=== PATIENT | female | born 1945 | race Caucasian/White ===

== ENCOUNTER 2017-04-17 09:42 | Emergency (ER) | payer MEDICARE, OTHER ==
[~2017-04-17] VITALS: Ht 167.6 cm; Wt 52.2 kg
[2017-04-17 09:50] VITALS: BP 113/66
[2017-04-17] MEDS ORDERED: diphenhydrAMINE HCL 25 MG CAPSULE PO ONE (10:30)
== END 2017-04-17 10:27 | disposition home or self-care (01) ==
LOC: ER 09:51
DX: T63.441A Toxic effect of venom of bees, accidental (unintentional), initial encounter (principal); F02.80 Dementia in other diseases classified elsewhere, unspecified severity, without behavioral disturbance, psychotic disturbance, mood disturbance, and anxiety; G30.9 Alzheimer's disease, unspecified; I10 Essential (primary) hypertension; Y92.89 Other specified places as the place of occurrence of the external cause
CPT/HCPCS: 99282; A4606; Z7610

== ENCOUNTER 2022-08-29 09:07 | Emergency (ER) | payer BC, MEDICARE, OTHER ==
[~2022-08-29] VITALS: Ht 165.1 cm; Wt 63.5 kg
--- NOTE | 2022-08-29 09:07 | NUR ---
RECEIVED PT TRANSFER FROM [facility] FOR ALOC UNRESPOSIVE TO PAINFULE STIMLY PT RESIVE NARCAN 4 MG [facility]
--- NOTE | 2022-08-29 09:18 | NUR ---
ACCUCK DONE 86MG/LD
--- NOTE | 2022-08-29 09:20 | NUR ---
INSERTED ANGOCATHTER G 20 ON RT F ARM BLOOD DROW AND SENT to lab
--- NOTE | 2022-08-29 09:45 | NUR ---
TO CT SCAN OF HEAD VIA ONEL CHEN WAKING UP NOW
--- NOTE | 2022-08-29 09:46 | NUR ---
PT TAKEN TO CT VIA PORFIRIO
[2022-08-29 10:02] LABS: BASOPHILS # (AUTO) 0.1 K/uL (0.0-0.2); BASOPHILS % (AUTO) 1.3 % (0.0-2.0); EOSINOPHILS % (AUTO) 5.2 % (0.0-6.0); HEMATOCRIT 46 % (33-45); HEMOGLOBIN 14.9 g/dL (11.5-14.8); LYMPHOCYTES # (AUTO) 1.6 K/uL (0.8-4.8); LYMPHOCYTES % (AUTO) 35.2 % (20.0-44.0); MEAN CORPUSCULAR HGB CONC 33 g/dl (31.0-36.0); MEAN CORPUSCULAR VOLUME 96 fL (82-100); MONOCYTES # (AUTO) 0.5 K/uL (0.1-1.30); MONOCYTES % (AUTO) 11.6 % (2.0-12.0); NEUTROPHILS # (AUTO) 2.2 K/uL (1.8-8.9); NEUTROPHILS % (AUTO) 46.7 % (43.0-81.0); PLATELET COUNT (AUTO) 197 K/uL (150-450); WHITE BLOOD COUNT (AUTO) 4.6 K/uL (4.3-11.0)
--- NOTE | 2022-08-29 10:15 | NUR ---
UA SENT TO LAB
[2022-08-29 10:52] LABS: ABG BASE EXCESS -1.1 mmol/L; ABG PH 7.405 (7.350-7.450); ABG PO2 115.3 mmHg (75.0-100.0); COHb 0.3 % (0.5-1.5); MetHb 0.3 % (0.0-1.5); O2Hb 97.3 % (94.0-97.0); SITE, ABG Left Radial; VENT MODE, BG ROOM AIR
[2022-08-29 11:03] LABS: BILIRUBIN,URINE NEGATIVE (NEGATIVE); COLOR,URINE YELLOW (YELLOW); LEUKOCYTE ESTERASE ,URINE NEGATIVE (NEGATIVE); NITRITE, URINE POSITIVE (NEGATIVE); PH,URINE 6.5 (5.0-8.0); PROTEIN,URINE NEGATIVE (NEGATIVE); UGLUCOSE NEGATIVE (NEGATIVE); UROBILINOGEN,URINE 0.2 EU/dL (0.2)
--- NOTE | 2022-08-29 11:04 | NUR ---
COVID SWAB SENT TO LAB
[2022-08-29 12:06] LABS: BACTERIA,URINE Many /HPF (None Seen); RBC,URINE 0-2 /HPF (0-2); SQUAMOUS EPITHELIAL CELL,UR Few /HPF (None Seen)
[2022-08-29] MEDS ORDERED: CIPR500T5 PO (12:39)
--- NOTE | 2022-08-29 12:40 | NUR ---
IV removed. Catheter intact and site benign. Pressure and 4x4 applied to site. No bleeding noted.
--- NOTE | 2022-08-29 12:45 | NUR ---
Patient discharged to home in stable condition. Written and verbal after care instructions given. Patient verbalizes understanding of instruction.
[2022-08-29 13:09] VITALS: BP 127/58
== END 2022-08-29 13:09 | disposition home or self-care (01) ==
LOC: ER 09:09
DX: F06.1 Catatonic disorder due to known physiological condition (principal); N39.0 Urinary tract infection, site not specified; Z20.822 Contact with and (suspected) exposure to COVID-19; Z88.2 Allergy status to sulfonamides; G30.9 Alzheimer's disease, unspecified; F02.80 Dementia in other diseases classified elsewhere, unspecified severity, without behavioral disturbance, psychotic disturbance, mood disturbance, and anxiety; I10 Essential (primary) hypertension
CPT/HCPCS: 99285; 72125; 71045; 87426; 93005; 70450; 85025; 87086; 81001; 36415; 84439; 36600; C9803

== ENCOUNTER 2023-01-30 21:02 | Inpatient (IN) | payer BC ==
[~2023-01-30] VITALS: Ht 162.6 cm; Wt 56.7 kg
[~2023-01-30 21:02] MED LIST: CIPR500T5 PO
[2023-01-30 22:11] LABS: BASOPHILS % (AUTO) 0.4 % (0.0-2.0); EOSINOPHILS % (AUTO) 0.2 % (0.0-6.0); HEMATOCRIT 43 % (33-45); HEMOGLOBIN 14.2 g/dL (11.5-14.8); LYMPHOCYTES # (AUTO) 0.9 K/uL (0.8-4.8); LYMPHOCYTES % (AUTO) 10.4 % (20.0-44.0); MEAN CORPUSCULAR HGB CONC 33 g/dl (31.0-36.0); MEAN CORPUSCULAR VOLUME 94 fL (82-100); MONOCYTES # (AUTO) 0.7 K/uL (0.1-1.30); MONOCYTES % (AUTO) 7.5 % (2.0-12.0); NEUTROPHILS # (AUTO) 7.2 K/uL (1.8-8.9); NEUTROPHILS % (AUTO) 81.5 % (43.0-81.0); PLATELET COUNT (AUTO) 206 K/uL (150-450); WHITE BLOOD COUNT (AUTO) 8.9 K/uL (4.3-11.0)
[2023-01-30 22:23] LABS: CALCIUM, SERUM 9.8 mg/dL (8.5-10.1); CARBON DIOXIDE 26 mmol/L (21-32); CHLORIDE 105 mmol/L (98-107); GLUCOSE 111 mg/dL (74-106); POTASSIUM 3.9 mmol/L (3.5-5.1); SODIUM SERUM 140 mmol/L (136-145); UREA NITROGEN, BLOOD 17 mg/dL (7-18)
[2023-01-30 22:37] LABS: ALANINE AMINOTRANSFERASE 22 U/L (12-78); ALBUMIN 3.9 g/dL (3.4-5.0); ALKALINE PHOSPHATASE 129 U/L (46-116); ASPARTATE AMINOTRANSFERASE 20 U/L (15-37); BILIRUBIN,DIRECT 0.1 mg/dL (0.0-0.2); BILIRUBIN,TOTAL 0.5 mg/dL (0.2-1.0); TOTAL PROTEIN, SERUM 7.4 g/dL (6.4-8.2)
[2023-01-31] MEDS ORDERED: OLANZAPINE 10 MG VIAL IM ONE ×2 (00:12→00:30)
[2023-01-31 01:25] LABS: BILIRUBIN,URINE NEGATIVE (NEGATIVE); COLOR,URINE YELLOW (YELLOW); LEUKOCYTE ESTERASE ,URINE NEGATIVE (NEGATIVE); NITRITE, URINE NEGATIVE (NEGATIVE); PH,URINE 7.5 (5.0-8.0); PROTEIN,URINE TRACE mg/dl (NEGATIVE); UGLUCOSE NEGATIVE (NEGATIVE)
[2023-01-31 01:26] LABS: BACTERIA,URINE Rare /HPF (None Seen); RBC,URINE 0-2 /HPF (0-2); SQUAMOUS EPITHELIAL CELL,UR Few /HPF (None Seen); WBC,URINE 0-2 /HPF (0-3)
[2023-01-31] MEDS ORDERED: MAG HYDROX/AL HYDROX/SIMETH 30 ML UDC PO PRN (05:00)
[2023-01-31] MEDS ORDERED: ZOLPIDEM TARTRATE 5 MG TABLET PO PRN (05:00)
[2023-01-31] MEDS ORDERED: ENOXAPARIN SODIUM 40 MG/0.4 ML DISP.SYRIN SQ SCH (05:00)
[2023-01-31] MEDS ORDERED: Z GUARD REMEDY 4 OZ OINT TP PRN (05:00)
[2023-01-31] MEDS ORDERED: ONDANSETRON HCL/PF 4 MG/2 ML VIAL IVP PRN (05:00)
[2023-01-31] MEDS ORDERED: MAGNESIUM HYDROXIDE 30 ML UDC PO PRN (05:00)
[2023-01-31] MEDS ORDERED: ACETAMINOPHEN 325 MG TABLET PO PRN (05:00)
[2023-01-31 06:00] LABS: BASOPHILS % (AUTO) 0.4 % (0.0-2.0); EOSINOPHILS % (AUTO) 0.2 % (0.0-6.0); HEMATOCRIT 43 % (33-45); HEMOGLOBIN 14.3 g/dL (11.5-14.8); LYMPHOCYTES # (AUTO) 1.3 K/uL (0.8-4.8); LYMPHOCYTES % (AUTO) 18.9 % (20.0-44.0); MEAN CORPUSCULAR HGB CONC 33 g/dl (31.0-36.0); MEAN CORPUSCULAR VOLUME 93 fL (82-100); MONOCYTES # (AUTO) 0.7 K/uL (0.1-1.30); MONOCYTES % (AUTO) 9.9 % (2.0-12.0); NEUTROPHILS % (AUTO) 70.6 % (43.0-81.0); PLATELET COUNT (AUTO) 183 K/uL (150-450); RED BLOOD CELL COUNT(AUTO) 4.65 MIL/uL (4.0-5.2); WHITE BLOOD COUNT (AUTO) 7.1 K/uL (4.3-11.0)
[2023-01-31 06:13] LABS: CALCIUM, SERUM 9.2 mg/dL (8.5-10.1); CARBON DIOXIDE 25 mmol/L (21-32); CHLORIDE 104 mmol/L (98-107); CREATININE 0.8 mg/dL (0.6-1.3); GLUCOSE 94 mg/dL (74-106); POTASSIUM 3.6 mmol/L (3.5-5.1); SODIUM SERUM 139 mmol/L (136-145); UREA NITROGEN, BLOOD 11 mg/dL (7-18)
[2023-01-31 06:21] LABS: CHOLESTEROL 121 mg/dL (<200); HDL CHOLESTEROL 72 mg/dL (40-60); LDL 48 mg/dL (0-99); TRIGLYCERIDES 46 mg/dL (30-150)
[2023-01-31 06:22] LABS: C-REACTIVE PROTEIN 4.5 mg/dL (0.0-0.9)
[2023-01-31 06:40] VITALS: BP 119/52
[2023-01-31] MEDS ORDERED: PANTOPRAZOLE 40 MG VIAL IV SCH (09:00)
[2023-01-31] MEDS ORDERED: AMLO2.5T4 PO (11:33)
[2023-01-31] MEDS ORDERED: GALA8TAB8 PO (11:33)
[2023-01-31] MEDS ORDERED: MEMA28CA5 PO (11:33)
[2023-01-31] MEDS ORDERED: LOSA25TA27 PO (11:33)
[2023-01-31] MEDS ORDERED: OLAN2.5T3 PO (11:33)
[2023-01-31] MEDS ORDERED: ROSU5TAB13 PO (11:33)
[2023-01-31] MEDS ORDERED: BUPR-54 PO (11:33)
[2023-01-31] MEDS ORDERED: ALPR0.5T8 PO (11:33)
== END 2023-01-31 16:50 | DRG 179 ==
LOC: ER 21:15 → MEDSG1 01-31 06:46
PROVIDERS: ADMIT Nurse Practitioner Acute Care; ATTEND Internal Medicine
DX: U07.1 COVID-19 (principal); G30.9 Alzheimer's disease, unspecified; F02.80 Dementia in other diseases classified elsewhere, unspecified severity, without behavioral disturbance, psychotic disturbance, mood disturbance, and anxiety; I10 Essential (primary) hypertension; Z78.9 Other specified health status; R29.6 Repeated falls; Z88.2 Allergy status to sulfonamides; F09 Unspecified mental disorder due to known physiological condition
CPT/HCPCS: 36415; 71045-TC; 80048-TC; 80061-TC; 80076-TC; 81001; 82962-TC; 83880; 84484-TC; 85025-TC; 85378-TC; 85652-TC; 86140-TC; 87081-TC; 97112-TC; 97116-TC; 97530-TC; C9113; C9803; G0378; J1650; J3490

== ENCOUNTER 2023-08-27 08:45 | Inpatient (IN) | payer BC, OTHER ==
[~2023-08-27] VITALS: Ht 167.6 cm; Wt 53.5 kg
[~2023-08-27 08:45] MED LIST changes: +ALPR0.5T8 PO; +AMLO2.5T4 PO; +BUPR-54 PO; -CIPR500T5 PO; +GALA8TAB8 PO; +LOSA25TA27 PO; +MEMA28CA5 PO; +OLAN2.5T3 PO; +ROSU5TAB13 PO
[2023-08-27 10:47] LABS: CALCIUM, SERUM 9.1 mg/dL (8.5-10.1); CREATININE 0.7 mg/dL (0.6-1.3); POTASSIUM 3.8 mmol/L (3.5-5.1)
[2023-08-27 10:53] LABS: BILIRUBIN,DIRECT 0.2 mg/dL (0.0-0.2); BILIRUBIN,TOTAL 0.9 mg/dL (0.2-1.0); TOTAL PROTEIN, SERUM 6.5 g/dL (6.4-8.2)
[2023-08-27 11:00] LABS: INR 1.07 (0.91-1.10); PROTHROMBIN TIME 11.3 SECS (9.2-11.1)
[2023-08-27 11:01] LABS: BASOPHILS % (AUTO) 0.2 % (0.0-2.0); EOSINOPHILS % (AUTO) 0.6 % (0.0-6.0); HEMATOCRIT 44 % (33-45); HEMOGLOBIN 14.9 g/dL (11.5-14.8); LYMPHOCYTES # (AUTO) 1.1 K/uL (0.8-4.8); MEAN CORPUSCULAR HEMOGLOBIN 31 PG (26.0-33.0); MEAN CORPUSCULAR HGB CONC 34 g/dl (31.0-36.0); MEAN CORPUSCULAR VOLUME 91 fL (82-100); MONOCYTES # (AUTO) 0.6 K/uL (0.1-1.30); MONOCYTES % (AUTO) 8.6 % (2.0-12.0); NEUTROPHILS % (AUTO) 74.6 % (43.0-81.0); PLATELET COUNT (AUTO) 148 K/uL (150-450); RED BLOOD CELL COUNT(AUTO) 4.77 MIL/uL (4.0-5.2); WHITE BLOOD COUNT (AUTO) 6.7 K/uL (4.3-11.0)
[2023-08-27] MEDS ORDERED: CHOL100043 PO (11:22)
[2023-08-27] MEDS ORDERED: CYAN-51 PO (11:22)
[2023-08-27] MEDS ORDERED: LORA-258 PO ×2 (11:22)
[2023-08-27] MEDS ORDERED: POLY17PO4 PO (11:22)
[2023-08-27] MEDS ORDERED: DICL100G26 TP (11:22)
[2023-08-27] MEDS ORDERED: [UNRECOGNIZED DRUG - OTHER] PO (11:22)
[2023-08-27] MEDS ORDERED: NITR100C11 PO (11:22)
[2023-08-27] MEDS ORDERED: ACET-868 PO (11:22)
[2023-08-27 11:39] LABS: APPEARANCE,URINE CLEAR (CLEAR); BILIRUBIN,URINE 1+ (NEGATIVE); BLOOD, URINE NEGATIVE Ery/uL (NEGATIVE); COLOR,URINE DARK YELLOW (YELLOW); KETONES,URINE 3+ mg/dL (NEGATIVE); LEUKOCYTE ESTERASE ,URINE NEGATIVE (NEGATIVE); NITRITE, URINE NEGATIVE (NEGATIVE); PROTEIN,URINE TRACE mg/dl (NEGATIVE); UGLUCOSE NEGATIVE (NEGATIVE)
[2023-08-27 11:57] LABS: ADD URINE CULTURE NO; BACTERIA,URINE Rare /HPF (None Seen); RBC,URINE 0-2 /HPF (0-2); SQUAMOUS EPITHELIAL CELL,UR Few /HPF (None Seen); WBC,URINE 0-2 /HPF (0-3)
[2023-08-27] MEDS ORDERED: MAG HYDROX/AL HYDROX/SIMETH 30 ML UDC PO PRN (15:30)
[2023-08-27] MEDS ORDERED: ZOLPIDEM TARTRATE 5 MG TABLET PO PRN (15:30)
[2023-08-27] MEDS ORDERED: POLYETHYLENE GLYCOL 3350 17 GM POWD.PACK PO PRN (15:30)
[2023-08-27] MEDS ORDERED: MORPHINE SULFATE INJ 2 MG/ML DISP.SYRIN IV PRN (15:30)
[2023-08-27] MEDS ORDERED: MAGNESIUM HYDROXIDE 30 ML UDC PO PRN (15:30)
[2023-08-27] MEDS ORDERED: ONDANSETRON HCL/PF 4 MG/2 ML VIAL IVP PRN (15:30)
[2023-08-27] MEDS ORDERED: Z GUARD REMEDY 4 OZ OINT TP PRN (15:30)
[2023-08-27] MEDS ORDERED: HYDROCODONE/APAP 5/325MG TABLET PO PRN (15:30)
[2023-08-27] MEDS: IV D5/0.45 NACL 1,000 ML IV PRN (15:38)
[2023-08-27] MEDS ORDERED: PANTOPRAZOLE 40 MG VIAL ONE (15:40)
[2023-08-27] MEDS: PANTOPRAZOLE 40 MG VIAL IV SCH (15:41)
[2023-08-27] MEDS ORDERED: MORPHINE SULFATE INJ 4 MG/ML DISP.SYRIN ONE (16:27)
[2023-08-27] MEDS ORDERED: MEMANTINE HCL 5 MG TABLET ONE (18:02)
[2023-08-27] MEDS: MEMANTINE HCL 5 MG TABLET PO SCH (18:02)
[2023-08-27] MEDS ORDERED: HYDROCODONE/APAP 5/325MG TABLET ONE (19:12)
[2023-08-27 19:35] VITALS: BP 115/89; TEMP 99; O2SAT 95
[2023-08-27] MEDS: ENOXAPARIN SODIUM 40 MG/0.4 ML DISP.SYRIN SQ SCH (21:27)
[2023-08-28] MEDS: IV D5/0.45 NACL 1,000 ML IV PRN ×2 (05:38→19:24)
[2023-08-28] MEDS: MORPHINE SULFATE INJ 4 MG/ML DISP.SYRIN IV PRN ×3 (05:58→15:43)
[2023-08-28 06:18] LABS: BASOPHILS # (AUTO) 0.1 K/uL (0.0-0.2); BASOPHILS % (AUTO) 0.8 % (0.0-2.0); EOSINOPHILS # (AUTO) 0.1 K/uL (0.0-0.7); EOSINOPHILS % (AUTO) 1.3 % (0.0-6.0); HEMATOCRIT 45 % (33-45); HEMOGLOBIN 14.9 g/dL (11.5-14.8); LYMPHOCYTES # (AUTO) 1.7 K/uL (0.8-4.8); LYMPHOCYTES % (AUTO) 20.5 % (20.0-44.0); MEAN CORPUSCULAR HEMOGLOBIN 31 PG (26.0-33.0); MEAN CORPUSCULAR HGB CONC 33 g/dl (31.0-36.0); MEAN CORPUSCULAR VOLUME 94 fL (82-100); MONOCYTES # (AUTO) 0.8 K/uL (0.1-1.30); MONOCYTES % (AUTO) 9.6 % (2.0-12.0); NEUTROPHILS # (AUTO) 5.6 K/uL (1.8-8.9); NEUTROPHILS % (AUTO) 67.8 % (43.0-81.0); PLATELET COUNT (AUTO) 181 K/uL (150-450); RED BLOOD CELL COUNT(AUTO) 4.78 MIL/uL (4.0-5.2); RED CELL DISTRIBUTION WIDTH 14.3 % (11.5-15.0); WHITE BLOOD COUNT (AUTO) 8.3 K/uL (4.3-11.0)
[2023-08-28 06:39] LABS: THYROID STIMULATING HORMONE 1.455 uIU/mL (0.358-3.74)
[2023-08-28 06:57] LABS: CALCIUM, SERUM 8.9 mg/dL (8.5-10.1); CREATININE 0.8 mg/dL (0.6-1.3); PHOSPHORUS 2.7 mg/dL (2.5-4.9); POTASSIUM 3.7 mmol/L (3.5-5.1)
[2023-08-28] MEDS: PANTOPRAZOLE 40 MG VIAL IV SCH (08:18)
[2023-08-28] MEDS: ATORVASTATIN 40 MG TABLET PO SCH (08:21)
[2023-08-28] MEDS: MEMANTINE HCL 5 MG TABLET PO SCH ×2 (08:21→16:58)
[2023-08-28] MEDS: LOSARTAN POTASSIUM 25 MG TABLET PO SCH (08:21)
[2023-08-28] MEDS: GALANTAMINE HYDROBROMIDE 4 MG TABLET PO SCH (08:22)
[2023-08-28] MEDS: CHOLECALCIFEROL 1,000 UNIT TABLET (VIT D3) PO SCH (08:22)
[2023-08-28] MEDS: BUPROPION XL 150 MG TAB.ER.24 PO SCH (08:22)
[2023-08-28] MEDS: AMLODIPINE BESYLATE 5 MG TABLET PO SCH (08:22)
[2023-08-28] MEDS: ENOXAPARIN SODIUM 40 MG/0.4 ML DISP.SYRIN SQ SCH (21:58)
[2023-08-29 07:00] VITALS: BP 122/75; TEMP 99.5; O2SAT 98
[2023-08-29] MEDS: IV D5/0.45 NACL 1,000 ML IV PRN ×2 (07:17→22:12)
[2023-08-29] MEDS: PANTOPRAZOLE 40 MG VIAL IV SCH (09:37)
[2023-08-29] MEDS: MEMANTINE HCL 5 MG TABLET PO SCH ×2 (09:38→17:00)
[2023-08-29] MEDS: CHOLECALCIFEROL 1,000 UNIT TABLET (VIT D3) PO SCH (09:38)
[2023-08-29] MEDS: LOSARTAN POTASSIUM 25 MG TABLET PO SCH (09:38)
[2023-08-29] MEDS: BUPROPION XL 150 MG TAB.ER.24 PO SCH (09:38)
[2023-08-29] MEDS: AMLODIPINE BESYLATE 5 MG TABLET PO SCH (09:38)
[2023-08-29] MEDS: ATORVASTATIN 40 MG TABLET PO SCH (09:38)
[2023-08-29] MEDS: GALANTAMINE HYDROBROMIDE 4 MG TABLET PO SCH (09:47)
[2023-08-29] MEDS ORDERED: ANESTHESIA TRAY IN PYXIS 1 EA TRAY MC ONE (12:25)
[2023-08-29] MEDS ORDERED: POLYMYXIN B SULFATE 0 UNITS ONE (12:25)
[2023-08-29] MEDS ORDERED: BUPIVACAINE 0.25% 75 MG/30 ML VIAL ONE (12:26)
[2023-08-29] MEDS ORDERED: FAMOTIDINE/PF INJ 20 MG/2 ML VIAL IV ONE (17:12)
[2023-08-29] MEDS ORDERED: ALBUMIN 25% 50 ML IV ONE (17:12)
[2023-08-29] MEDS ORDERED: KETAMINE HCL (500MG/10ML) 50 MG/ML VIAL ONE (17:12)
[2023-08-29] MEDS ORDERED: FENTANYL PF 100MCG/2ML AMPUL ONE (17:12)
[2023-08-29] MEDS ORDERED: TRANEXAMIC ACID 1,000 MG/10 ML VIAL ONE (17:14)
[2023-08-29] MEDS ORDERED: ROPIVACAINE HCL 0.5% 5 MG/ML 30ML VIAL ONE (17:14)
[2023-08-29] MEDS ORDERED: HYDROMORPHONE INJ 2 MG/ML DISP.SYRIN ONE (18:41)
[2023-08-29] MEDS ORDERED: MEPERIDINE25 MG SYR 25 MG/ML VIAL ONE (19:34)
[2023-08-29] MEDS ORDERED: SENNOSIDES 8.6 MG TABLET PO PRN ×2 (20:00)
[2023-08-29] MEDS ORDERED: DOCUSATE SODIUM 100 MG CAPSULE PO PRN (20:00)
[2023-08-29] MEDS ORDERED: BISACODYL SUPP (10 MG) 10 MG/SUPP.RECT SUPP.RECT RC PRN (20:00)
[2023-08-29] MEDS ORDERED: DOCUSATE SODIUM 250 MG CAPSULE PO PRN (20:00)
[2023-08-29 20:30] VITALS: BP 151/91; TEMP 98.8; O2SAT 94
[2023-08-29] MEDS: ENOXAPARIN SODIUM 40 MG/0.4 ML DISP.SYRIN SQ SCH (22:24)
[2023-08-30] MEDS: ANCEF 1 GM/50 ML D5W IV SCH ×4 (02:17→09:04)
[2023-08-30 06:59] LABS: HEMATOCRIT 38 % (33-45); HEMOGLOBIN 12.6 g/dL (11.5-14.8); LYMPHOCYTES # (AUTO) 0.6 K/uL (0.8-4.8); LYMPHOCYTES % (AUTO) 7.3 % (20.0-44.0); MEAN CORPUSCULAR HEMOGLOBIN 31 PG (26.0-33.0); MEAN CORPUSCULAR HGB CONC 33 g/dl (31.0-36.0); MEAN CORPUSCULAR VOLUME 94 fL (82-100); MONOCYTES # (AUTO) 0.6 K/uL (0.1-1.30); MONOCYTES % (AUTO) 7.1 % (2.0-12.0); NEUTROPHILS # (AUTO) 6.9 K/uL (1.8-8.9); NEUTROPHILS % (AUTO) 85.6 % (43.0-81.0); PLATELET COUNT (AUTO) 240 K/uL (150-450); RED BLOOD CELL COUNT(AUTO) 4.04 MIL/uL (4.0-5.2); RED CELL DISTRIBUTION WIDTH 14.3 % (11.5-15.0); WHITE BLOOD COUNT (AUTO) 8.1 K/uL (4.3-11.0)
[2023-08-30 07:21] LABS: CALCIUM, SERUM 8.9 mg/dL (8.5-10.1); CREATININE 0.7 mg/dL (0.6-1.3); POTASSIUM 3.6 mmol/L (3.5-5.1)
[2023-08-30] MEDS: ATORVASTATIN 40 MG TABLET PO SCH (08:43)
[2023-08-30] MEDS: MEMANTINE HCL 5 MG TABLET PO SCH ×2 (08:43→16:07)
[2023-08-30] MEDS: PANTOPRAZOLE 40 MG TABLET.DR PO SCH (08:44)
[2023-08-30] MEDS: BUPROPION XL 150 MG TAB.ER.24 PO SCH (08:44)
[2023-08-30] MEDS: CHOLECALCIFEROL 1,000 UNIT TABLET (VIT D3) PO SCH (08:44)
[2023-08-30] MEDS: GALANTAMINE HYDROBROMIDE 4 MG TABLET PO SCH (08:45)
[2023-08-30] MEDS: LOSARTAN POTASSIUM 25 MG TABLET PO SCH (09:03)
[2023-08-30] MEDS: AMLODIPINE BESYLATE 5 MG TABLET PO SCH (09:03)
[2023-08-30 09:13] VITALS: BP 106/85; TEMP 98.4; O2SAT 95
[2023-08-30] MEDS: ENSURE ENLIVE 237 ML LIQUID (VANILLA) PO SCH (16:06)
[2023-08-30 21:00] VITALS: BP 114/76; TEMP 99.5; O2SAT 96
[2023-08-30] MEDS: ACETAMINOPHEN 325 MG TABLET PO PRN (21:20)
[2023-08-30] MEDS: ENOXAPARIN SODIUM 40 MG/0.4 ML DISP.SYRIN SQ SCH (21:21)
[2023-08-31 07:30] VITALS: BP 109/61; TEMP 98.6; O2SAT 96
[2023-08-31 08:01] LABS: BASOPHILS % (AUTO) 0.1 % (0.0-2.0); EOSINOPHILS % (AUTO) 0.5 % (0.0-6.0); HEMATOCRIT 35 % (33-45); HEMOGLOBIN 11.9 g/dL (11.5-14.8); LYMPHOCYTES % (AUTO) 12.9 % (20.0-44.0); MEAN CORPUSCULAR HEMOGLOBIN 31 PG (26.0-33.0); MEAN CORPUSCULAR HGB CONC 34 g/dl (31.0-36.0); MEAN CORPUSCULAR VOLUME 93 fL (82-100); MONOCYTES # (AUTO) 0.9 K/uL (0.1-1.30); MONOCYTES % (AUTO) 12.2 % (2.0-12.0); NEUTROPHILS # (AUTO) 5.7 K/uL (1.8-8.9); NEUTROPHILS % (AUTO) 74.3 % (43.0-81.0); PLATELET COUNT (AUTO) 271 K/uL (150-450); RED BLOOD CELL COUNT(AUTO) 3.81 MIL/uL (4.0-5.2); RED CELL DISTRIBUTION WIDTH 14.2 % (11.5-15.0); WHITE BLOOD COUNT (AUTO) 7.7 K/uL (4.3-11.0)
[2023-08-31] MEDS: ENSURE ENLIVE 237 ML LIQUID (VANILLA) PO SCH ×2 (08:03→15:59)
[2023-08-31 08:33] LABS: CALCIUM, SERUM 8.7 mg/dL (8.5-10.1); CREATININE 0.7 mg/dL (0.6-1.3); POTASSIUM 3.5 mmol/L (3.5-5.1)
[2023-08-31] MEDS: PANTOPRAZOLE 40 MG TABLET.DR PO SCH (09:12)
[2023-08-31] MEDS: LOSARTAN POTASSIUM 25 MG TABLET PO SCH (09:12)
[2023-08-31] MEDS: BUPROPION XL 150 MG TAB.ER.24 PO SCH (09:12)
[2023-08-31] MEDS: CHOLECALCIFEROL 1,000 UNIT TABLET (VIT D3) PO SCH (09:12)
[2023-08-31] MEDS: ATORVASTATIN 40 MG TABLET PO SCH (09:13)
[2023-08-31] MEDS: AMLODIPINE BESYLATE 5 MG TABLET PO SCH (09:13)
[2023-08-31] MEDS: MEMANTINE HCL 5 MG TABLET PO SCH ×2 (09:19→16:00)
[2023-08-31] MEDS: GALANTAMINE HYDROBROMIDE 4 MG TABLET PO SCH (09:19)
[2023-08-31] MEDS: CARVEDILOL 12.5 MG TABLET PO SCH ×2 (10:00→21:00)
[2023-08-31] MEDS: SPIRONOLACTONE 25 MG TABLET PO SCH (10:51)
[2023-08-31] MEDS: ACETAMINOPHEN 325 MG TABLET PO PRN (15:59)
[2023-08-31 16:00] VITALS: BP 100/71; TEMP 100.2; O2SAT 96
[2023-08-31 20:00] VITALS: BP 94/59; TEMP 98.5; O2SAT 95
[2023-08-31] MEDS ORDERED: IV NS 0.9% 500 ML IV ONE (22:00)
[2023-08-31 22:26] LABS: BASOPHILS % (AUTO) 0.1 % (0.0-2.0); EOSINOPHILS # (AUTO) 0.1 K/uL (0.0-0.7); EOSINOPHILS % (AUTO) 0.9 % (0.0-6.0); HEMATOCRIT 35 % (33-45); HEMOGLOBIN 11.4 g/dL (11.5-14.8); LYMPHOCYTES # (AUTO) 1.3 K/uL (0.8-4.8); LYMPHOCYTES % (AUTO) 15.7 % (20.0-44.0); MEAN CORPUSCULAR HEMOGLOBIN 31 PG (26.0-33.0); MEAN CORPUSCULAR HGB CONC 33 g/dl (31.0-36.0); MEAN CORPUSCULAR VOLUME 94 fL (82-100); MONOCYTES % (AUTO) 11.8 % (2.0-12.0); NEUTROPHILS # (AUTO) 5.9 K/uL (1.8-8.9); NEUTROPHILS % (AUTO) 71.5 % (43.0-81.0); PLATELET COUNT (AUTO) 256 K/uL (150-450); RED BLOOD CELL COUNT(AUTO) 3.68 MIL/uL (4.0-5.2); RED CELL DISTRIBUTION WIDTH 14.6 % (11.5-15.0); WHITE BLOOD COUNT (AUTO) 8.2 K/uL (4.3-11.0)
[2023-08-31] MEDS: ENOXAPARIN SODIUM 40 MG/0.4 ML DISP.SYRIN SQ SCH (23:53)
[2023-09-01 07:06] LABS: BASOPHILS % (AUTO) 0.2 % (0.0-2.0); EOSINOPHILS # (AUTO) 0.1 K/uL (0.0-0.7); EOSINOPHILS % (AUTO) 1.5 % (0.0-6.0); HEMATOCRIT 34 % (33-45); HEMOGLOBIN 11.3 g/dL (11.5-14.8); LYMPHOCYTES # (AUTO) 1.1 K/uL (0.8-4.8); LYMPHOCYTES % (AUTO) 15.6 % (20.0-44.0); MEAN CORPUSCULAR HEMOGLOBIN 31 PG (26.0-33.0); MEAN CORPUSCULAR HGB CONC 33 g/dl (31.0-36.0); MEAN CORPUSCULAR VOLUME 94 fL (82-100); MONOCYTES # (AUTO) 0.8 K/uL (0.1-1.30); NEUTROPHILS % (AUTO) 71.7 % (43.0-81.0); PLATELET COUNT (AUTO) 260 K/uL (150-450); RED BLOOD CELL COUNT(AUTO) 3.61 MIL/uL (4.0-5.2); RED CELL DISTRIBUTION WIDTH 14.2 % (11.5-15.0); WHITE BLOOD COUNT (AUTO) 6.9 K/uL (4.3-11.0)
[2023-09-01 07:17] LABS: CALCIUM, SERUM 8.6 mg/dL (8.5-10.1); CARBON DIOXIDE 25 mmol/L (21-32); CHLORIDE 107 mmol/L (98-107); CREATININE 0.6 mg/dL (0.6-1.3); GLUCOSE 94 mg/dL (74-106); POTASSIUM 3.5 mmol/L (3.5-5.1); SODIUM SERUM 137 mmol/L (136-145); UREA NITROGEN, BLOOD 16 mg/dL (7-18)
[2023-09-01 08:00] VITALS: BP 100/65; TEMP 98.1; O2SAT 94
[2023-09-01] MEDS: ENSURE ENLIVE 237 ML LIQUID (VANILLA) PO SCH ×2 (08:42→17:43)
[2023-09-01] MEDS: PANTOPRAZOLE 40 MG TABLET.DR PO SCH (08:58)
[2023-09-01] MEDS: BUPROPION XL 150 MG TAB.ER.24 PO SCH (08:58)
[2023-09-01] MEDS: SPIRONOLACTONE 25 MG TABLET PO SCH (08:58)
[2023-09-01] MEDS: CHOLECALCIFEROL 1,000 UNIT TABLET (VIT D3) PO SCH (08:58)
[2023-09-01] MEDS: MEMANTINE HCL 5 MG TABLET PO SCH ×2 (08:58→17:43)
[2023-09-01] MEDS: CARVEDILOL 12.5 MG TABLET PO SCH (08:59)
[2023-09-01] MEDS: LOSARTAN POTASSIUM 25 MG TABLET PO SCH (09:00)
[2023-09-01] MEDS: ATORVASTATIN 40 MG TABLET PO SCH (09:03)
[2023-09-01] MEDS: GALANTAMINE HYDROBROMIDE 4 MG TABLET PO SCH (09:04)
[2023-09-01 16:00] VITALS: BP 108/69; TEMP 98.3; O2SAT 96
[2023-09-01 20:00] VITALS: BP 106/64; TEMP 98.7; O2SAT 95
[2023-09-01] MEDS: ENOXAPARIN SODIUM 40 MG/0.4 ML DISP.SYRIN SQ SCH (21:52)
[2023-09-02 07:30] VITALS: BP 106/72; TEMP 97.8; O2SAT 96
[2023-09-02] MEDS: ENSURE ENLIVE 237 ML LIQUID (VANILLA) PO SCH ×2 (08:42→17:02)
[2023-09-02] MEDS: CHOLECALCIFEROL 1,000 UNIT TABLET (VIT D3) PO SCH (09:12)
[2023-09-02] MEDS: SPIRONOLACTONE 25 MG TABLET PO SCH (09:12)
[2023-09-02] MEDS: ATORVASTATIN 40 MG TABLET PO SCH (09:12)
[2023-09-02] MEDS: MEMANTINE HCL 5 MG TABLET PO SCH ×2 (09:12→17:17)
[2023-09-02] MEDS: BUPROPION XL 150 MG TAB.ER.24 PO SCH (09:13)
[2023-09-02] MEDS: PANTOPRAZOLE 40 MG TABLET.DR PO SCH (09:13)
[2023-09-02] MEDS: GALANTAMINE HYDROBROMIDE 4 MG TABLET PO SCH (09:34)
[2023-09-02 16:00] VITALS: BP 106/63; TEMP 98.6; O2SAT 96
[2023-09-02 20:00] VITALS: BP 106/77; TEMP 98.4; O2SAT 97
[2023-09-02] MEDS ORDERED: ENOXAPARIN SODIUM 40 MG/0.4 ML DISP.SYRIN SQ ONE (21:28)
[2023-09-02] MEDS: ENOXAPARIN SODIUM 40 MG/0.4 ML DISP.SYRIN SQ SCH (21:47)
[2023-09-03 07:30] VITALS: BP 116/71; TEMP 98.4; O2SAT 95
[2023-09-03] MEDS: ENSURE ENLIVE 237 ML LIQUID (VANILLA) PO SCH (08:09)
[2023-09-03] MEDS: SPIRONOLACTONE 25 MG TABLET PO SCH (08:44)
[2023-09-03] MEDS: PANTOPRAZOLE 40 MG TABLET.DR PO SCH (08:44)
[2023-09-03] MEDS: BUPROPION XL 150 MG TAB.ER.24 PO SCH (08:44)
[2023-09-03] MEDS: MEMANTINE HCL 5 MG TABLET PO SCH (08:44)
[2023-09-03] MEDS: ATORVASTATIN 40 MG TABLET PO SCH (08:44)
[2023-09-03] MEDS: CHOLECALCIFEROL 1,000 UNIT TABLET (VIT D3) PO SCH (08:44)
[2023-09-03] MEDS: GALANTAMINE HYDROBROMIDE 4 MG TABLET PO SCH (08:45)
== END 2023-09-03 15:16 | DRG 521 ==
LOC: ER 08:47 → MED 18:44
PROVIDERS: ADMIT Nurse Practitioner Acute Care; ATTEND Nurse Practitioner Acute Care
PROC: 0SRS0JZ Replacement of Left Hip Joint, Femoral Surface with Synthetic Substitute, Open Approach (ICD-10-PCS; principal; 2023-08-29)
DX: S72.002A Fracture of unspecified part of neck of left femur, initial encounter for closed fracture (principal); I50.23 Acute on chronic systolic (congestive) heart failure; F02.83 Dementia in other diseases classified elsewhere, unspecified severity, with mood disturbance; F02.84 Dementia in other diseases classified elsewhere, unspecified severity, with anxiety; E44.1 Mild protein-calorie malnutrition; D68.69 Other thrombophilia; W18.30XA Fall on same level, unspecified, initial encounter; G30.9 Alzheimer's disease, unspecified; F32.A Depression, unspecified; I11.0 Hypertensive heart disease with heart failure; E78.5 Hyperlipidemia, unspecified; E88.09 Other disorders of plasma-protein metabolism, not elsewhere classified; Z86.16 Personal history of COVID-19; Z88.2 Allergy status to sulfonamides; R91.1 Solitary pulmonary nodule; Z74.09 Other reduced mobility; Y93.9 Activity, unspecified; Y92.89 Other specified places as the place of occurrence of the external cause
CPT/HCPCS: 36415; 71045-TC; 71250-TC; 73502; 80048-TC; 80061-TC; 80076-TC; 81001; 82962-TC; 83690-TC; 83735-TC; 84100-TC; 84443-TC; 85025-TC; 85730-TC; 86850-TC; 87081-TC; 87086-TC; 88305-TC; 88311-TC; 93307-TC; 97110-TC; 97112-TC; 97116-TC; 97530-TC; 97535-TC; A4217; A4223; A6209; A6402; C1776; C9113; G0378; J0690; J1100; J1170; J1650; J2175; J2270; J2405; J2765; J2795; J3010; J3490; J7030; J7060; P9047

== ENCOUNTER 2023-10-28 08:21 | Emergency (ER) | payer OTHER ==
[~2023-10-28] VITALS: Ht 170.2 cm; Wt 62.6 kg
[~2023-10-28 08:21] MED LIST changes: +ACET-868 PO; -ALPR0.5T8 PO; +CHOL100043 PO; +CYAN-51 PO; +DICL100G26 TP; +LORA-258 PO; +NITR100C11 PO; -OLAN2.5T3 PO; +POLY17PO4 PO; +[UNRECOGNIZED DRUG - OTHER] PO
[2023-10-28 11:39] VITALS: BP 119/84; TEMP 98.4; O2SAT 98
== END 2023-10-28 11:39 | disposition home or self-care (01) ==
LOC: ER 08:36
DX: S22.088A Other fracture of T11-T12 vertebra, initial encounter for closed fracture (principal); I10 Essential (primary) hypertension; Z79.899 Other long term (current) drug therapy; Z88.2 Allergy status to sulfonamides; W18.39XA Other fall on same level, initial encounter; Y93.89 Activity, other specified; Y92.89 Other specified places as the place of occurrence of the external cause; Y99.8 Other external cause status
CPT/HCPCS: 72131-TC; 73521